=== PATIENT | female | born 1995 | race Caucasian/White ===

== ENCOUNTER → 2021-07-11 11:15 | Outpatient (CLI) | payer OTHER, SELFPAY ==
[2021-07-11 11:42] LABS: Absolute Lymphocyte Count 2.39 X10^3/uL (0.83-4.51); Absolute Neutrophil Count 7.8 X10^3/uL (2.0-7.7); Basophil# 0.03 X10^3/uL; Basophil% 0.3 % (0-1); Color, Urine Yellow (Yellow); Eosinophil# 0.03 X10^3/uL; Eosinophils% 0.3 % (0-5); Glucose, Dipstick Normal (Normal); Hematocrit 41.1 % (37-47); Hemoglobin 13.9 g/dL (12.0-15.0); Ketone-Dipstick Negative (Negative); Leukocyte Esterase-Dipstick 25 /ul (Negative); Lymphocyte # 2.39 X10^3/ul (0.83-4.51); Lymphocyte % 21.9 % (19-41); Mean Corp Hgb Conc 33.8 g/dL (32-36); Mean Corpuscular Hgb 29.4 pg (27.0-32.0); Mean Corpuscular Volume 86.9 fL (81-99); Mean Platelet Vol. 10.5 fl (6.2-12.0); Monocyte# 0.63 X10^3/uL; Monocyte% 5.8 % (0-10); NRBC Flagged by Analyzer 0 % (0-5); Neutrophil # 7.81 X10^3/uL (2.7-7.7); Neutrophil % 71.3 % (47-70); Nitrite-Dipstick Negative (Negative); Occult Blood-Urine Negative /ul (Negative); Platelet Count 292 K/mm3 (150-450); Protein-Dipstick Negative (Negative); RBC Distribution Width CV 12.8 % (11.6-14.6); RBC Distribution Width SD 40.4 fl (35.1-43.9); Red Blood Count 4.73 M/mm3 (4.2-5.4); Specific Gravity, Urine 1.015 (1.002-1.030); Urine Bilirubin Dipstick Negative (Negative); Urine Clarity Sl. Cloudy (Clear); Urine Urobilinogen Normal (Normal); White Blood Count 10.9 K/mm3 (4.4-11.0)
[2021-07-11 11:53] LABS: Amphetamine Urine VISTA NEGATIVE (<1000 ng/mL); Barbiturate Urine VISTA NEGATIVE (< 200 ng/mL); Benzodiazepine Urine VISTA NEGATIVE (< 200 ng/mL); Cocaine Urine VISTA NEGATIVE (< 300 ng/mL); Ecstacy Urine VISTA NEGATIVE (< 500 ng/mL); Methadone Urine VISTA NEGATIVE (< 300 ng/mL); PCP Urine VISTA NEGATIVE (< 25 ng/mL); THC Urine VISTA NEGATIVE (< 50 ng/mL); Vista UDS pH Range 7
[2021-07-11 12:21] LABS: Thyroid Stim Hormone (TSH) 4.19 uIU/mL (0.358-3.74)
[2021-07-11 12:54] LABS: HIV - WCH Non-Reactive (Nonreactive); Hepatitis B Surface Antigen Non-Reactive (Nonreactive); Hepatitis C Antibody Non-Reactive (Nonreactive); Rubella IgG Reactive (Nonreactive); Syphilis Antibodies Non-reactive
[2021-07-15 12:56] LABS: T4 Free Direct 0.88 ng/dL (0.76-1.46)
[2021-07-16 19:07] LABS: Chlamydia By Nucleic Acid AMP Negative (Negative)
[2021-07-17 09:31] LABS: Gonococcus By Nucleic Acid AMP Negative (Negative)
[2021-07-17 18:52] LABS: HPV Reflexed? NOT INDICATED
== END ==
PROVIDERS: Visit Provider Obstetrics & Gynecology
DX: Z34.81 Encounter for supervision of other normal pregnancy, first trimester (principal); Z12.4 Encounter for screening for malignant neoplasm of cervix
CPT/HCPCS: 36415; 80307; 81002; 84439; 84443; 85025; 86703; 86762; 86780; 86803; 87086; 87088; 87186; 87340; 87491; 87591; 88175; G0145

== ENCOUNTER → 2021-07-23 11:32 | Outpatient (CLI) | payer OTHER, SELFPAY ==
[2021-07-25 18:22] LABS: Anti-Thyroglobulin AB < 1.0 IU/mL (0.0-0.9); Thyroglobulin, Serum Qt. 7.5 ng/mL (1.5-38.5); Thyroid Peroxidase AB 20 IU/mL (0-34)
== END ==
PROVIDERS: Visit Provider Obstetrics & Gynecology
DX: E03.9 Hypothyroidism, unspecified (principal)
CPT/HCPCS: 36415; 84432; 86376; 86800

== ENCOUNTER 2021-11-12 14:14 | Outpatient (CLI) | payer OTHER, SELFPAY ==
[2021-11-12 17:09] LABS: Hematocrit 35.5 % (37-47); Mean Corp Hgb Conc 33.8 g/dL (32-36); Mean Corpuscular Hgb 30.1 pg (27.0-32.0); Mean Platelet Vol. 11.1 fl (6.2-12.0); Platelet Count 268 K/mm3 (150-450); RBC Distribution Width CV 13.2 % (11.6-14.6); RBC Distribution Width SD 43.2 fl (35.1-43.9); Red Blood Count 3.99 M/mm3 (4.2-5.4); White Blood Count 12.9 K/mm3 (4.4-11.0)
[2021-11-12 17:36] LABS: Free T3 2.1 pg/mL (2.18-3.98); Glucose Challenge Gest 1H 50g 137 mg/dL (70-140); T4 Free Direct 0.67 ng/dL (0.76-1.46); Thyroid Stim Hormone (TSH) 2.08 uIU/mL (0.358-3.74)
== END 2021-11-12 23:59 | disposition short-term general hospital (02) ==
LOC: WOBLAB 14:14
PROVIDERS: Visit Provider Obstetrics & Gynecology
DX: O99.283 Endocrine, nutritional and metabolic diseases complicating pregnancy, third trimester (principal); E03.9 Hypothyroidism, unspecified
CPT/HCPCS: 36415; 82950; 84439; 84443; 84481; 85027

== ENCOUNTER 2021-12-11 15:52 | Outpatient (CLI) | payer OTHER, SELFPAY ==
[2021-12-11 16:48] LABS: T4 Free Direct 0.64 ng/dL (0.76-1.46); Thyroid Stim Hormone (TSH) 1.52 uIU/mL (0.358-3.74)
== END 2021-12-11 23:59 | disposition home or self-care (01) ==
LOC: WOBLAB 15:52
PROVIDERS: Visit Provider Obstetrics & Gynecology
DX: O99.283 Endocrine, nutritional and metabolic diseases complicating pregnancy, third trimester (principal); E03.9 Hypothyroidism, unspecified; Z3A.00 Weeks of gestation of pregnancy not specified
CPT/HCPCS: 36415; 84439; 84443

== ENCOUNTER 2022-01-17 16:07 | Outpatient (CLI) | payer OTHER, SELFPAY ==
[2022-01-17 17:01] LABS: Hematocrit 34.7 % (37-47); Hemoglobin 11.4 g/dL (12.0-15.0); Mean Corp Hgb Conc 32.9 g/dL (32-36); Mean Corpuscular Hgb 27.8 pg (27.0-32.0); Mean Corpuscular Volume 84.6 fL (81-99); Mean Platelet Vol. 11.4 fl (6.2-12.0); Platelet Count 269 K/mm3 (150-450); RBC Distribution Width CV 13.3 % (11.6-14.6); RBC Distribution Width SD 41.3 fl (35.1-43.9); White Blood Count 11.5 K/mm3 (4.4-11.0)
[2022-01-17 17:35] LABS: Creatinine, Urine (random) < 13.00 mg/dL (NO RANGE EST.); Protein, Urine (Random) < 6.0 mg/dL (<11.9)
[2022-01-17 18:00] LABS: AST(SGOT) 10 U/L (15-37); Alanine Aminotransfer ALT/SGPT 17 U/L (13-56); Albumin, Serum 2.5 g/dL (3.2-5.0); Alkaline Phosphatase 116 U/L (45-117); Bilirubin, Direct 0.08 mg/dL (0.00-0.30); Globulin 3.8 g/dL (2.2-4.2); Protein, Total 6.3 g/dL (6.4-8.2); T4 Free Direct 0.65 ng/dL (0.76-1.46); Thyroid Stim Hormone (TSH) 1.16 uIU/mL (0.358-3.74)
[2022-01-20 14:20] LABS: T4 Total, Thyroxin 8.2 ug/dL (4.8-13.9)
== END 2022-01-17 23:59 | disposition home or self-care (01) ==
LOC: WOBLAB 16:08
PROVIDERS: Visit Provider Obstetrics & Gynecology
DX: O12.03 Gestational edema, third trimester (principal); O99.283 Endocrine, nutritional and metabolic diseases complicating pregnancy, third trimester; E03.9 Hypothyroidism, unspecified; Z3A.00 Weeks of gestation of pregnancy not specified
CPT/HCPCS: 36415; 80076; 82570; 84156; 84436; 84439; 84443; 85027

== ENCOUNTER 2022-02-01 01:40 | Inpatient (IN) | payer OTHER, SELFPAY ==
[2022-02-01] VITALS (61 sets, daily range): BP systolic 104–146; BP diastolic 56–81; PULSE 72–121; RESP 18; TEMP 36.2–37.8; O2SAT 90–100; BMI 35.6
--- NOTE | 2022-02-01 01:36 | PCM.HP.BLA ---
History and Physical Date of Admission: 02/01/22 OG ANTEPARTUM RECORD - HISTORY AND PHYSICAL (02/01/2022) Name: REYNALDO FUNES History of this : This is a 26 year old [id number] presents at 40 wks + 0 days gestation with SROM. OB Physician: Beth Maya MD Mccausland's Physician: PED REPERTOIRE MANAGER ...................................................................... : 1995 Age: 26 Address: [address] [place] [address] Phone: ([phone] ([phone] Insurance Carrier: [employer] [id number] Emergency Contact: ...................................................................... Final SHELLEY: 02/01/22 By Ultrasound: 12 weeks 3 days PARITY: (G-Total Pregnancies P-Fullterm,Premature,Induced AB,Spont AB, Ectopics, Multiple,Living) SHELLEY CONFIRMATION: By LMP: 04/18/21 Initial Exam: 01/23/22 By First Ultrasound Exam: 02/01/22 Final SHELLEY: 02/01/22 OB PROBLEM LIST: - office class enc. Declines genetic and carrier screening EPDS = 5 Epidural plannned - office childbirth class enc. First cousin with Autism GBS bactiuria Spouse has 2 nephews with Spina Bifida Subclinical hypothyroidism ALLERGIES: No Known Drug Allergies MEDICATIONS: 28 mg-800 mcg tablet daily Synthroid 50 mcg tablet One pill by mouth once a day SOCIAL HISTORY: Smoking - Never Alcohol Use - socially Diet - no special diet Lifestyle - low stress lifestyle and Exercise - regular Employer - [employer] Job Description - [employer] Illicit Drug Use - denies use of street drugs Sexual Activity - Residence - lives with Place of - [place], [place] Hours Worked - 20 WK Spouse-Sig Other Name - Anibal Funes Spouse-Sig Other Occupation - Liquid Compounder Spouse-Sig Other Phone No - [phone] PRIOR DELIVERY HISTORY DEL DATE GEST LAB WT LB WT OZ TYPE ANES LABOR TX ANTEPARTUM FLOW CHART VISIT GE RTC FU F F GA U U DATE WK MD WKS HT PN HR M SS BP ED WT GA GL D EF ST __ ____ ___ __ __ ___ __ __ __ ___ __ __ __ ___ __ 14 Apr 39 JM 1 39 V + + 128/78 0 224 - - 1 07 Apr 38 JM 1 38 V + + 136/84 1+ 217 - - 1 01 Apr 37 SHM 1 38 V + + 134/70 sl 222 tr - 22 Mar 36 SHM 1 37 V + + 120/76 3+ 216 - - 08 Mar 34 SHM 2 35 V + + 115/60 sl 209 - - 23 Feb 32 SHM 2 32 V + + 136/82 sl 203 - - 08 Feb 30 SHM 2 30 + + 120/70 0 196 - - 25 Nov 15 SHM 2 28 ? + + 120/60 sl 191 ne ne Oct 11 SHM 4 24 ? + + 122/78 1+ 183 ne ne Oct 07 SHM 4 20 + US 112/62 0 171 tr - 03 Sep 03 SHM 4 16 + o 100/66 161 - - 05 Jul 30 SHM 4 on US 100/60 153 tr - ANTEPARTUM NOTE(S): Jan 30 2022: Jan 23 2022: Jan 17 2022: PATSY today Jan 07 2022: back pain, restless legs Dec 24 2021: doing well Dec 11 2021: Nov 26 2021: doing well Nov 12 2021: see note Oct 16 2021: FM well, Back pain at times, Glucola given Sep 18 2021: comp u/s today Aug 21 2021: Jul 23 2021: Mild nausea COMPREHENSIVE ANTEPARTUM NOTE(S): Jan 30 2022: Reynaldo is 39w5d here for PNV. Good FM no edema. Woul dlike cervical check and to have her membranes swept. BR Jan 30 2022: 39wks, desires IOL at 41wks. JM Jan 23 2022: Reynaldo is 38w5d here for PNV good FM 1+edema. No concerns. BR Jan 23 2022: 38wks, CE 1cm. JM Jan 21 2022: H taken to OB. tkg Jan 17 2022: TFTs, preeclampsia labs today given continued fluid gain, upper normal BPs. Pt asx. Si/sx preeclampsia reviewed. Labor, ROM, FM precautions. Jan 07 2022: Reynaldo is here for a pnv at 36/3. Good FM. 3 + edema present, non-pitting. Discussed use of compression socks. Mild back pain/ discomfort, [plans to start using maternity belt. Desires cervix check. MK Dec 24 2021: Reynaldo is 34w3d here for PNV. Good FM. Slight edema. She is doing well. She has no questions/concerns at this time. MR Dec 24 2021: Preeclampsia, PTL, ROM, FM precautions. Discussed Peds selection. Dec 11 2021: Reynaldo is 32w4d here for PNV. Good FM sl edema. No concerns or complaints today. Would like to know if she should get a refill of synthriod as she is almost out. BR Nov 29 2021: Entry for 11/26/21: Irregular FHTs noted, refer to MFM for eval Nov 26 2021: Reviewed FM and PTL. Encouraged Tdap. Tolerating thyroid medication well. LMT Nov 26 2021: Reviewed hypothyroidism, tolerates Synthroid well. Repeat labs in 2-4 weeks. PTL, FM precautions. Discussed childbirth class. Nov 12 2021: Discussed PPBC, previously on OCP, considering options. PTL, ROM, FM precautions. Baby shower in 4 weeks. Oct 16 2021: EPIDURAL PLANNED in labor. PTL, FM precautions. Glucola info for next visit. Low-mid back pain, exercises, comfort measures discussed. Sep 18 2021: Reynaldo is here with her for comp u/s today. She relates some issues with Restless Leg Syndrome and asking what she can do? Reviewed that she can try Magnesium, warm bath, Unisom, or Benadryl if trouble sleeping from the RLS. She also has lower back discomfort and advised she could try massage, heating pad, Chiropractor. Reviewed vaccines that are recommended in . Reviewed blood t Sep 18 2021: Discussed warm bath, massage and mineral supplementation including Mg, Benadryl qhs for restless leg syndrome. [place] and PTL precautions. Anatomy scan today wnl, EFW 73rd%, sex unknown - plans home reveal, placenta ANTERIOR. ok for . Travel precautions for Donna travel, DVT precautions reviewed. Aug 21 2021: Reynaldo here for her PVN. Shes doing well today with no concerns. CB Aug 21 2021: labs reviewed, A positive. Subclinical hypothyroidism with no significant Ab. Pt denies hypothyroid symptoms, si/sx reviewed. Will observe at this time, repeat TFTs at 24-28wga. GBS bactiuria, advised abx in labor, reviewed indications. Pt inquires about alcohol in , reviewed no known safe level and advised to abstain given EtOH crosses placenta and may have neurologic consequenc Jul 31 2021: NOB TELEHEALTH VISIT, 45 MINUTE DURATION. Reynaldo is a 25 year old with an SHELLEY of 02/01/2021, current GA is 13 w 4 d. She resides with her , Anibal; she states that he is supportive. Delivery at [facility] is planned with an epidural, and she will breastfeed. Office and childbirth classes discussed and encouraged. Practice patterns reviewed, including danger signs/emergencies, h Jul 23 2021: Reviewed OTC for mild nausea, discomforts, constipation. Overall feeling well. LMT Jul 23 2021: Reynaldo is here to sign NOB consents. She is a 25 year old with an SHELLEY of 02/01/2022, current GA is 12 w 3 d. She states that she has no nausea, but due to some odor aversions, she vomits at least once a day. Declines medications, states I can manage pretty well. Office practice patterns reviewed. She has been reading through her What to Expect... book and shares that she is finds it use Jul 23 2021: 25yo G1 @ 12w3d by US today not c/w LMP. Pt notes menses q3-5 weeks. She feels well, nausea resolved. Hx and labs reviewed. Strong family hx hypothyroidism and pt with personal hx hypothyroidism, previously on Synthroid temporarily. Unknown if thyroid antibodies. labs reviewed. A positive. GBS bactiuria - indicates for GBS antibiotic ppx in labor reviewed. Subclinical hypothyroid Jul 11 2021: Selene is here for missed menses appt. Relates LMP 04/18/21, +UPT today in office, EDC 01/23/22 which makes her 12 weeks today. She relates that she has mild nausea and occ emesis. She is taking PNV. No signifcant medical history. Unsure of last pap so will have that today. She questions what position to sleep in? Advised she can sleep however she would like. Can she fly? Yes, until about 36 weeks. REVIEW OF SYSTEMS: GENERAL - Denies fever, or chills SKIN - Denies rash, new skin lesions, or change in moles EYES - Denies blurred vision, or change in visual acuity EARS - Denies ear pain, or difficulty hearing NOSE - Denies nasal congestion, discharge, or bleeding MOUTH - Denies sore throat, or difficulty swallowing NECK - Denies pain or swelling RESPIRATORY - Denies shortness of breath, cough, wheezing CARDIOVASCULAR - Denies palpitations, chest pain, orthopnea, PND, peripheral edema, syncope or claudication GASTROINTESTINAL - Denies nausea, vomiting, diarrhea, constipation, Denies abdominal pain, melena and or bright red blood GENITOURINARY - Denies dysuria, frequency of urination, urgency, or hesitancy MUSCULOSKELETAL - Denies joint or muscle pain, or back pain NEUROLOGICAL - Denies localized numbness, weakness, or tingling PSYCHIATRIC - Denies depression, anxiety, substance abuse or suicide attempts ENDOCRINE - Denies heat or cold intolerance, weight loss or gain, increasing thirst HEMATO-IMMUNOLOGIC - Denies easy bruising, bleeding, oral ulcerations or recurrent infections GENETICS SCREENING: Age 35+ years: No Thalassemia: No Neural Tube Defect: Yes, Spouse's two nephews Down Syndrome: No JIE-SACHS: No Sickle Cell Disease: No Hemophilia: No Musc. Dystrophy: No Cystic Fibrosis: No-declines screening Benny Chorea: No Mental Retardation: No Fragile X: No Other genetic: No Other defects: No SABs/still births: No Drugs since LMP: No Comments: Pt has a first cousin with Autism INFECTION HISTORY: High risk AIDS: No High risk Hepatitis: No Exposed to TB: No Exposed to Herpes: No Rash/viral illness since LMP: No History of STD: No MENSTRUAL HISTORY: *Menses Amount/Duration: 6-7 DAYSMenses Regularity: RegularMenarche (Age Onset): 13* PAST SUMMARY: PARITY: 1. Total Pregnancies............ 1 2. Full Term Pregnancies........ 0 3. Premature.................... 0 4. Abortions - Induced.......... 0 5. Abortions - Spontaneous...... 0 6. Ectopics..................... 0 7. Multiple Births.............. 0 8. Living Children.............. 0 PHYSICAL EXAMINATION General Appearence: 26 yo female in no acute distress Vital Signs: AF, VSS Heart: RRR without rubs or gallops Lungs: CTA x 2 Breasts: deferred Abdomen: gravid Pelvis: Cervix: Presentation: cephalic Station: Fetus: Size: AGA Movement: present Heart: present LAB TEST(S) ORDERED SINCE:05/07/21 07/25/2021 THYROID PEROXIDASE AB 07/25/2021 THYROGLOBULIN W/ANTI-TG AB 07/17/2021 PAP I-G W/RFX HRHPV-APTIMA 07/17/2021 CHLAMYDIA/GC COURT APTIMA 07/16/2021 URINE CULTURE 07/15/2021 T4 FREE DIRECT 07/11/2021 URINE DRUG SCREEN (VISTA) 07/11/2021 URINALYSIS, ROUTINE (DIPSTICK) 07/11/2021 THYROID STIM HORMONE (TSH) 07/11/2021 RUBELLA IGG 07/11/2021 T AND S-NO CHARGE W/PNP 07/11/2021 L509.8000 07/11/2021 HIV - WC 07/11/2021 HEPATITIS C ANTIBODY 07/11/2021 HEPATITIS B SURFACE ANTIGEN 07/11/2021 CBC W/DIFF, AUTOMATED 01/20/2022 T4 TOTAL, THYROXIN 01/17/2022 THYROID STIM HORMONE (TSH) 01/17/2022 T4 FREE DIRECT 01/17/2022 PROTEIN+CREATININE RATIO,URINE 01/17/2022 LIVER PROFILE 01/17/2022 CBC-COMPLETE BLOOD CNT NO DIFF 12/11/2021 THYROID STIM HORMONE (TSH) 12/11/2021 T4 FREE DIRECT 11/12/2021 THYROID STIM HORMONE (TSH) 11/12/2021 T4 FREE DIRECT 11/12/2021 GLUCOSE CHALLENGE GEST 1H 50G 11/12/2021 FREE T3 11/12/2021 CBC-COMPLETE BLOOD CNT NO DIFF == ==== Order Observation Description Value Ref_Range A* Site == ==== T4 TOTAL, THYRO NOTE HOLT T4 TOTAL, THYRO T4 THYROXIN 8.2 ug/dL 4.8-13.9 ML T4 FREE DIRECT NOTE HOLT T4 FREE DIRECT T4 FREE DIRECT 0.65 ng/dL 0.76-1.46 L ML THYROID STIM HO NOTE HOLT THYROID STIM HO TSH 1.16 uIU/mL 0.358-3.74 ML LIVER PROFILE NOTE HOLT LIVER PROFILE T PROT 6.3 g/dL 6.4-8.2 L ML LIVER PROFILE ALB 2.5 g/dL 3.2-5.0 L ML LIVER PROFILE GLOB 3.8 g/dL 2.2-4.2 ML LIVER PROFILE AST 10 U/L 15-37 L ML LIVER PROFILE ALK P 116 U/L 45-117 ML LIVER PROFILE ALT 17 U/L 13-56 ML LIVER PROFILE T BILI 0.20 mg/dL 0.20-1.00 ML For patients on eltrombopag therapy, use of Dimension [place] TBIL is not recommended. LIVER PROFILE D BILI 0.08 mg/dL 0.00-0.30 ML PROTEIN+CREATIN NOTE HOLT PROTEIN+CREATIN UR CREAT < 13.00 mg/dL NO RANGE EST. ML PROTEIN+CREATIN PROTEIN,UR.RAN. < 6.0 mg/dL <11.9 ML PROTEIN+CREATIN PROT:CRE RATIO TNP mg/g CRE 0-200 ML CBC-COMPLETE BL NOTE HOLT CBC-COMPLETE BL WBC 11.5 K/mm3 4.4-11.0 H ML CBC-COMPLETE BL RBC 4.10 M/mm3 4.2-5.4 L ML CBC-COMPLETE BL HGB 11.4 g/dL 12.0-15.0 L ML CBC-COMPLETE BL HCT 34.7 37-47 L ML CBC-COMPLETE BL MCV 84.6 fL 81-99 ML CBC-COMPLETE BL MCH 27.8 pg 27.0-32.0 ML CBC-COMPLETE BL MCHC 32.9 g/dL 32-36 ML CBC-COMPLETE BL RDW CV 13.3 11.6-14.6 ML CBC-COMPLETE BL RDW SD 41.3 fl 35.1-43.9 ML CBC-COMPLETE BL PLT 269 K/mm3 150-450 ML CBC-COMPLETE BL MPV 11.4 fl 6.2-12.0 ML T4 FREE DIRECT NOTE HOLT T4 FREE DIRECT T4 FREE DIRECT 0.64 ng/dL 0.76-1.46 L ML THYROID STIM HO NOTE HOLT THYROID STIM HO TSH 1.52 uIU/mL 0.358-3.74 ML T4 FREE DIRECT NOTE HOLT T4 FREE DIRECT T4 FREE DIRECT 0.67 ng/dL 0.76-1.46 L ML THYROID STIM HO NOTE HOLT THYROID STIM HO TSH 2.08 uIU/mL 0.358-3.74 ML FREE T3 NOTE HOLT FREE T3 FREE T3 2.1 pg/mL 2.18-3.98 L ML GLUCOSE CHALLEN NOTE HOLT GLUCOSE CHALLEN GLU GEST 50G 1H 137 mg/dL 70-140 ML CBC-COMPLETE BL NOTE HOLT CBC-COMPLETE BL WBC 12.9 K/mm3 4.4-11.0 H ML CBC-COMPLETE BL RBC 3.99 M/mm3 4.2-5.4 L ML CBC-COMPLETE BL HGB 12.0 g/dL 12.0-15.0 ML CBC-COMPLETE BL HCT 35.5 37-47 L ML CBC-COMPLETE BL MCV 89.0 fL 81-99 ML CBC-COMPLETE BL MCH 30.1 pg 27.0-32.0 ML CBC-COMPLETE BL MCHC 33.8 g/dL 32-36 ML CBC-COMPLETE BL RDW CV 13.2 11.6-14.6 ML CBC-COMPLETE BL RDW SD 43.2 fl 35.1-43.9 ML CBC-COMPLETE BL PLT 268 K/mm3 150-450 ML CBC-COMPLETE BL MPV 11.1 fl 6.2-12.0 ML THYROID PEROXID NOTE HOLT THYROID PEROXID THYR PEROX AB 20 IU/mL 0-34 LCI Performed at: - [facility] [address], [place] [id number] Adjustment Supervisor: Ming Ng PhD, Phone: [phone] THYROGLOBULIN W NOTE HOLT THYROGLOBULIN W ANTI-TG AB < 1.0 IU/mL 0.0-0.9 [facility] Thyroglobulin Antibody measured by [employer] THYROGLOBULIN W THYROGLOB QUANT 7.5 ng/mL 1.5-38.5 LCI According to the National Academy of Clinical Biochemistry, the reference interval for Thyroglobulin (TG) should be related to euthyroid patients and not for patients who underwent thyroidectomy. TG reference intervals for these patients depend on the residual mass of the thyroid tissue left after surgery. Establishing a post-operative baseline is recommended. The assay limit of quantitation is 0.1 ng/mL Thyroglobulin measured by Vadim [employer] Immunometric Assay PAP I-G W/RFX H NOTE HOLT PAP I-G W/RFX H DIAG Comment . [facility] NEGATIVE FOR INTRAEPITHELIAL LESION OR MALIGNANCY. THIS SPECIMEN WAS RESCREENED PART OF OUR RELATIONS SPECIALIST PROGRAM. PAP I-G W/RFX H ADEQ Comment . [facility] Satisfactory for evaluation. Endocervical and/or squamous metaplastic cells (endocervical component) are present. PAP I-G W/RFX H PERFORM Comment . [facility] Brandt Clemens, Musical Instrument Maker Or Repairer (ASCP) PAP I-G W/RFX H QC REV Comment . [facility] Natacha Dobson, Supervisory Musical Instrument Maker Or Repairer (ASCP) This liquid based ThinPrep(R) pap test was screened with the use of an image guided system. PAP I-G W/RFX H COMM . . [facility] PAP I-G W/RFX H PAPSMR Comment . [facility] The Pap smear is a screening test designed to aid in the detection of premalignant and malignant conditions of the uterine cervix. It is not a diagnostic procedure and should not be used as the sole means of detecting cervical cancer. Both false-positive and false-negative reports do occur. PAP I-G W/RFX H HPV RFLX Comment . [facility] The HPV DNA reflex criteria were not met with this specimen result therefore, no HPV testing was performed. Performed at: [address] [id number] Adjustment Supervisor: Emily Herrera MD, Phone: [phone] CHLAMYDIA/GC NA NOTE HOLT CHLAMYDIA/GC NA CHLAMY,NUC ACID Negative Negative LCI CHLAMYDIA/GC NA GC BY NUC ACID Negative Negative [facility] Performed at: =[address], [place], [place] [id number] Adjustment Supervisor: Emily Herrera MD, Phone: [phone] URINE CULTURE NOTE HOLT T4 FREE DIRECT NOTE HOLT T4 FREE DIRECT T4 FREE DIRECT 0.88 ng/dL 0.76-1.46 ML HEPATITIS C ANT NOTE HOLT HEPATITIS C ANT HEPATITIS C AB Non-Reactive Nonreactive ML Non Reactive: < 0.8 Equivocal: >/= 0.8 to < 1.0 Reactive: >/= 1.0 The CDC recommends that a reactive/equivocal HCV antibody result be followed up by the HCV Nucleic Acid Amplification test (399576) HEPATITIS B LELAND NOTE HOLT HEPATITIS B LELAND HEP B SURF AG Non-Reactive Nonreactive ML HIV - WC NOTE HOLT HIV - [facility] HIV Non-Reactive Nonreactive ML L509.8000 NOTE HOLT L509.8000 SYPHILIS ABS Non-reactive ML RUBELLA IGG NOTE HOLT RUBELLA IGG RUBELLA IGG Reactive Nonreactive ML Antibody Results Interpretation of Immune Status Non Reactive Presumed Non-Immune Equivocal Equivocal Reactive Presumed Immune PN N [facility]~[address] [place], [address]~ T AND AB SCREEN GEL NEGATIVE ML THYROID STIM HO NOTE HOLT THYROID STIM HO TSH 4.19 uIU/mL 0.358-3.74 H ML URINE DRUG SCRE NOTE HOLT URINE DRUG SCRE VISTA UDS PH 7 ML URINE DRUG SCRE AMPHETAMINES NEGATIVE <1000 ng/mL ML URINE DRUG SCRE BARBITIURATES NEGATIVE < 200 ng/mL ML URINE DRUG SCRE BENZODIAZIPINE NEGATIVE < 200 ng/mL ML URINE DRUG SCRE COCAINE NEGATIVE < 300 ng/mL ML URINE DRUG SCRE ECSTACY NEGATIVE < 500 ng/mL ML URINE DRUG SCRE METHADONE NEGATIVE < 300 ng/mL ML URINE DRUG SCRE OPIATES NEGATIVE < 300 ng/mL ML URINE DRUG SCRE PCP NEGATIVE < 25 ng/mL ML URINE DRUG SCRE THC NEGATIVE < 50 ng/mL ML CBC W/DIFF, AUT NOTE HOLT CBC W/DIFF, AUT WBC 10.9 K/mm3 4.4-11.0 ML CBC W/DIFF, AUT RBC 4.73 M/mm3 4.2-5.4 ML CBC W/DIFF, AUT HGB 13.9 g/dL 12.0-15.0 ML CBC W/DIFF, AUT HCT 41.1 37-47 ML CBC W/DIFF, AUT MCV 86.9 fL 81-99 ML CBC W/DIFF, AUT MCH 29.4 pg 27.0-32.0 ML CBC W/DIFF, AUT MCHC 33.8 g/dL 32-36 ML CBC W/DIFF, AUT RDW CV 12.8 11.6-14.6 ML CBC W/DIFF, AUT RDW SD 40.4 fl 35.1-43.9 ML CBC W/DIFF, AUT PLT 292 K/mm3 150-450 ML CBC W/DIFF, AUT MPV 10.5 fl 6.2-12.0 ML CBC W/DIFF, AUT NEUT% 71.3 47-70 H ML CBC W/DIFF, AUT LY% 21.9 19-41 ML CBC W/DIFF, AUT MONO% 5.8 0-10 ML CBC W/DIFF, AUT EO% 0.3 0-5 ML CBC W/DIFF, AUT BASO% 0.3 0-1 ML CBC W/DIFF, AUT IG% 0.400 0.0-0.9 ML IG% - Immature Granulocytes (promyelocytes, myelocytes and metamyelocytes) > 1% indicates that a LEFT SHIFT is Present. CBC W/DIFF, AUT ABSOLUTE NEUT 7.8 X10 3/uL 2.0-7.7 H ML CBC W/DIFF, AUT ABSOLUTE LYMPH 2.39 X10 3/uL 0.83-4.51 ML CBC W/DIFF, AUT NUCLEATED RBC 0 0-5 ML URINALYSIS, ROU NOTE HOLT URINALYSIS, ROU COLOR Yellow Yellow ML URINALYSIS, ROU URINE CLARITY Sl. Cloudy Clear ML URINALYSIS, ROU GLUCOSE, UR Normal mg/dl Normal ML URINALYSIS, ROU BILIRUBIN URINE Negative mg/dL Negative ML URINALYSIS, ROU KETONE UR Negative mg/dl Negative ML URINALYSIS, ROU SP.GR. DIPSTX 1.015 1.002-1.030 ML URINALYSIS, ROU PH UR 8.0 5.0 - 8.0 ML URINALYSIS, ROU PROT DIPSTX Negative mg/dl Negative ML URINALYSIS, ROU UROBILI Normal mg/dl Normal ML URINALYSIS, ROU NITRITE Negative Negative ML URINALYSIS, ROU OCCULT BLOOD-UR Negative /ul Negative ML URINALYSIS, ROU LEUK ESTERASE 25 /ul Negative A ML Mixed Gram Positive Organisms [place] Count 11,000-25,000 Streptococcus agalactiae (B) [place] Count <1000 Streptococcus agalactiae (B): REACTION Ampicillin <=0.25 S Penicillin G <=0.06 S Ceftriaxone <=0.12 S Clindamycin >=1 R Clindamycin.induced NEG Linezolid <=2 S Vancomycin 0.5 S A POSITIVE == ==== Impression /Plan: 40 wks + 0 days intrauterine with SROM in early labor. Preparations in progress for delivery.
[2022-02-01 01:50] LABS: ROM Internal Control Test YES-OK TO RESULT pt. (Internal QC)
[2022-02-01 01:54] LABS: ROM Patient Test POSITIVE (Negative)
[2022-02-01] MEDS: Lactated Ringers 1,000 ML 50 ML IV (02:00)
[2022-02-01 02:41] LABS: Absolute Lymphocyte Count 1.84 X10^3/uL (0.83-4.51); Absolute Neutrophil Count 8.4 X10^3/uL (2.0-7.7); Basophil# 0.01 X10^3/uL; Basophil% 0.1 % (0-1); Eosinophil# 0.07 X10^3/uL; Eosinophils% 0.6 % (0-5); Hematocrit 32.7 % (37-47); Hemoglobin 10.3 g/dL (12.0-15.0); Lymphocyte # 1.84 X10^3/ul (0.83-4.51); Lymphocyte % 16.4 % (19-41); Mean Corp Hgb Conc 31.5 g/dL (32-36); Mean Corpuscular Hgb 27.3 pg (27.0-32.0); Mean Corpuscular Volume 86.7 fL (81-99); Mean Platelet Vol. 11.5 fl (6.2-12.0); Monocyte# 0.84 X10^3/uL; Monocyte% 7.5 % (0-10); NRBC Flagged by Analyzer 0 % (0-5); Neutrophil # 8.35 X10^3/uL (2.7-7.7); Neutrophil % 74.7 % (47-70); Platelet Count 244 K/mm3 (150-450); RBC Distribution Width CV 14.6 % (11.6-14.6); RBC Distribution Width SD 45.4 fl (35.1-43.9); Red Blood Count 3.77 M/mm3 (4.2-5.4); White Blood Count 11.2 K/mm3 (4.4-11.0)
[2022-02-01] MEDS: Oxytocin 30 units/NS 500 ml 30 UNITS/500 ML IV.SOLN IV (05:12)
[2022-02-01] MEDS: Penicillin G 3,000,000 Units 50 ML 100 UNITS IV ×4 (07:40→20:08)
[2022-02-01] MEDS: Lactated Ringers 500 ML 999 ML IV ×2 (08:30→13:44)
[2022-02-01] MEDS: fentaNYL-bupivacaine (epidural) 100 ML BAG EPIDURAL ×3 (10:03→18:46)
[2022-02-01] MEDS: Lactated Ringers 1,000 ML 200 ML IV ×2 (12:03→15:28)
--- NOTE | 2022-02-01 17:55 | NURSING ---
Lactated ringers decreased to 150ml/hr per Dr. Taylor verbal order.
[2022-02-01] MEDS: Oxytocin 30 units/NS 500 ml 30 UNITS/500 ML IV.SOLN 334 UNITS IV (22:45)
--- NOTE | 2022-02-01 22:53 | EX.PCM.OBRPT ---
Maternal Data Information Final SHELLEY: 02/01/22 Final SHELLEY Source: US <20 weeks Gestational age: 40 weeks 0 days gestation Vaginal Delivery Maternal Presentation Maternal Presentation: Active Labor and Spontaneous Rupture of Membranes Operative Information Date of Procedure: 02/01/22 Pre-Operative Diagnosis: IUP Post-Operative Diagnosis: IUP Surgery / Procedure Performed: Vacuum Assisted Vaginal Delivery Type of Anesthesia: Epidural Estimated Blood Loss: 250 cc Fluids Replaced: Crystalloid Findings Description of Procedure: Spontaneous vaginal delivery of a viable male infant with Apgars of 8/9 from an occiput anterior presentation with clear amniotic fluid and normal three-vessel placenta. No episiotomy. Second-degree midline laceration repaired with 3-0 Rapide suture under epidural. Sponges okay. Delivery physician: Anibal Taylor MD. Presentation: Vertex Amniotic Membrane Rupture Type: Spontaneous Amniotic Fluid Description: Clear Placental Delivery Description: Spontaneous Placenta Disposition: [facility] Cord Vessel Description: 3 Vessels Cord Entanglement: None A Gender: Male (1 minute): 8 (5 minute): 9 Post Vaginal Delivery Medications Given After Delivery: IV Pitocin Episiotomy Description: None Laceration: Midline and 2nd degree Complication Complications: None
[2022-02-02] VITALS (10 sets, daily range): BP systolic 110–134; BP diastolic 55–77; PULSE 88–125; RESP 14–18; TEMP 36.3–36.8; O2SAT 97–98
[2022-02-02] MEDS: 0.9% Saline Lock 10 ML Syringe IV (01:18)
[2022-02-02] MEDS: Ibuprofen 600 MG Tablet PO ×3 (03:15→18:25)
[2022-02-02] MEDS: Levothyroxine 75 MCG Tablet PO (06:00)
--- NOTE | 2022-02-02 06:48 | NURSING ---
This RN reviewed and agrees with Alex Student nurse charting and assessments
--- NOTE | 2022-02-02 08:53 | PCM.PN.OB ---
Subjective Subjective Patient without complaints. Minimal vaginal bleeding noted. Breast-feeding going well. Objective Data Objective Data Vital Signs: Vital Signs Temp Pulse Resp BP Pulse Ox 97.7 F L 88 14 134/77 H 98 02/02/22 03:09 02/02/22 03:09 02/02/22 03:09 02/02/22 03:09 02/02/22 00:48 Oxygen Delivery Method Room Air Weight: 228 lb Body Mass Index (BMI) 35.6 Intake & Output: Intake and Output for Last 24 Hours 01/31/22 02/01/22 02/02/22 23:59 23:59 23:59 Intake Total 4178.96 / 4178.96 333 / 333 Output Total 3650 / 3650 800 / 800 Balance 528.96 / 528.96 -467 / -467 Lab / Micro Data Result Diagrams: 02/01/22 02:00 Micro: Microbiology 02/01/22 02:00 Nasal Secretion SARS-CoV-2 Antigen (Rapid) - Final Assessment & Plan (1) Spontaneous vaginal delivery: PLAN: Doing well post day #1 status post routine spontaneous vaginal delivery. Delivered late last evening and desires to stay another day. Will discharge to home tomorrow and continue present care.
[2022-02-02] MEDS: Senna/Docusate Sodium 1 Tablet PO (12:01)
[2022-02-03 00:05] VITALS: BP 131/80; PULSE 102; RESP 18; TEMP 36.7
[2022-02-03 04:35] VITALS: BP 122/78; PULSE 86; RESP 18; TEMP 36.6
[2022-02-03] MEDS: Levothyroxine 75 MCG Tablet PO (06:36)
--- NOTE | 2022-02-03 08:19 | PCM.PN.OB ---
Subjective Subjective Patient without complaints. Breast-feeding. Minimal vaginal bleeding reported. Wants to go home if baby is able to go. Objective Data Objective Data Vital Signs: Vital Signs Temp Pulse Resp BP Pulse Ox 97.9 F 86 18 122/78 H 98 02/03/22 04:35 02/03/22 04:35 02/03/22 04:35 02/03/22 04:35 02/02/22 16:00 Oxygen Delivery Method Room Air Weight: 228 lb Body Mass Index (BMI) 35.6 Intake & Output: Intake and Output for Last 24 Hours 02/01/22 02/02/22 02/03/22 23:59 23:59 23:59 Intake Total 4178.96 / 4178.96 333 / 333 Output Total 3650 / 3650 800 / 800 Balance 528.96 / 528.96 -467 / -467 Lab / Micro Data Result Diagrams: 02/01/22 02:00 Micro: Microbiology 02/01/22 02:00 Nasal Secretion SARS-CoV-2 Antigen (Rapid) - Final Assessment & Plan (1) Spontaneous vaginal delivery: PLAN: Doing well day #2 status post routine spontaneous vaginal delivery. Will discharge to home with routine instructions.
--- NOTE | 2022-02-03 08:21 | PCM.DC ---
Discharge Instructions Diet Discharge Diet: No restrictions Activity Discharge Activity: May Drive (In 1 to 2 days if not taking narcotic pain medication), May Shower and May Take a Tub Bath May resume sexual activity in: 4-6 weeks Additional Activity Instructions:: Nothing in the vagina for 4-6 weeks. You may return to work/school in 6 weeks. Dressing / Incision Call your doctor if you observe: Fever of 101 or Higher, Inability to urinate, Inability to have a bowel movement and Using more than 1 pad per hour Follow Up Care Please Follow Up With: Beth Álvarez MD When: Call [phone] to make an appointment with your doctor in 6 weeks. Test Results: Test results from this visit will be discussed in further detail at your follow-up appointment, if applicable. Discharge Plan Admission Admit Date/Time: 02/01/22 01:40 Primary Reason for Your Visit: Vaginal Delivery Attending Provider: Anibal Taylor Primary Care Provider: Care Physician,Brenna Primary Discharge Orders/Prescriptions Prescriptions: No Action levothyroxine [Synthroid] 75 mcg Tablet 75 mcg PO DAILY RF: 0 #2 Tablet 1 tab PO DAILY RF: 0 Referrals / Follow Up: Care Physician,No Primary [Primary Care Provider] - Disposition Disposition (needs filled in before D/C Order can be placed): Home, Self Care
--- NOTE | 2022-02-03 08:22 | PCM.DC.SUM ---
Providers Date of Admission: 02/01/22 Primary Care Physician: Brenna Primary Care Phys Reason For Visit: LABOR Diagnosis Discharge Diagnosis (1) Spontaneous vaginal delivery: Status: Acute Code(s): O80 - Encounter for full-term uncomplicated delivery Plan: Released to home with routine instructions. Follow-up in 6 weeks in the office. Medications at Discharge Home Medications levothyroxine [Synthroid] 75 mcg PO DAILY 02/01/22 prenat.vits,pierce,sec-pegu-bgzlp [ #2] 1 tab PO DAILY 02/01/22 Weight / BMI Weight Weight: 228 lb Body Mass Index (BMI) 35.6 ABG / Lab / Microbiology Data Result Diagrams: 02/01/22 02:00 Microbiology: Microbiology 02/01/22 02:00 Nasal Secretion SARS-CoV-2 Antigen (Rapid) - Final D/C Instructions Discharge Diet: No restrictions May resume sexual activity in: 4-6 weeks Additional Activity Instructions: Nothing in the vagina for 4-6 weeks. You may return to work/school in 6 weeks. Call your doctor if you observe: Fever of 101 or Higher, Inability to urinate, Inability to have a bowel movement and Using more than 1 pad per hour Please Follow Up With: Beth Álvarez MD When: Call [phone] to make an appointment with your doctor in 6 weeks. Meaningful Use Info Meaningful Use Diagnoses (Choose all that apply): None applicable Discharge Plan Admission Admit Date/Time: 02/01/22 01:40 Primary Reason for Your Visit: Vaginal Delivery Attending Provider: Anibal Taylor Primary Care Provider: Care Physician,Brenna Primary Discharge Orders/Prescriptions Prescriptions: No Action levothyroxine [Synthroid] 75 mcg Tablet 75 mcg PO DAILY RF: 0 #2 Tablet 1 tab PO DAILY RF: 0 Referrals / Follow Up: Care Physician,Brenna Primary [Primary Care Provider] - Disposition Disposition (needs filled in before D/C Order can be placed): Home, Self Care
[2022-02-03 09:04] VITALS: BP 128/73; PULSE 79; RESP 16; TEMP 36.3; O2SAT 98
[2022-02-03] MEDS: Acetaminophen 500 MG Tablet 1000 MG PO (09:16)
== END 2022-02-03 12:15 | disposition home or self-care (01) | DRG 807 ==
LOC: WPOUT 01:46 → WP 01:46
PROVIDERS: Admitting Provider Obstetrics & Gynecology; Visit Provider Obstetrics & Gynecology
DX: O76 Abnormality in fetal heart rate and rhythm complicating labor and delivery (principal); Z37.0 Single live birth; E03.9 Hypothyroidism, unspecified; O99.284 Endocrine, nutritional and metabolic diseases complicating childbirth; O42.92 Full-term premature rupture of membranes, unspecified as to length of time between rupture and onset of labor; O70.1 Second degree perineal laceration during delivery; O99.820 Streptococcus B carrier state complicating pregnancy; Z28.310 Unvaccinated for COVID-19; Z28.9 Immunization not carried out for unspecified reason; Z3A.40 40 weeks gestation of pregnancy; Z79.899 Other long term (current) drug therapy
CPT/HCPCS: 59025; 59050; 84112; 85025; 86850; 86900; 86901; 87426; 99218; J7120; A4216; G0378

== ENCOUNTER → 2022-03-04 | Outpatient (CLI) | payer OTHER, SELFPAY ==
[2022-03-04 15:48] LABS: Free T3 2.4 pg/mL (2.18-3.98); T4 Free Direct 0.97 ng/dL (0.76-1.46)
[2022-03-11 09:30] LABS: T3 Reverse 11.6 ng/dL (9.2-24.1)
== END | disposition home or self-care (01) ==
LOC: WOBLAB 14:15
PROVIDERS: Visit Provider Obstetrics & Gynecology
DX: E03.9 Hypothyroidism, unspecified (principal)
CPT/HCPCS: 36415; 84439; 84443; 84481; 84482

== ENCOUNTER → 2023-01-08 | Outpatient (CLI) | payer OTHER, SELFPAY ==
[2023-01-12 22:06] LABS: Chlamydia By Nucleic Acid AMP Negative (Negative)
[2023-01-13 08:58] LABS: Gonococcus By Nucleic Acid AMP Negative (Negative)
== END | disposition home or self-care (01) ==
PROVIDERS: PCP Family Medicine; Referring Provider Obstetrics & Gynecology; Visit Provider Obstetrics & Gynecology
DX: O09.90 Supervision of high risk pregnancy, unspecified, unspecified trimester (principal); Z3A.00 Weeks of gestation of pregnancy not specified
CPT/HCPCS: 87086; 87088; 87491; 87591

== ENCOUNTER → 2023-01-12 | Outpatient (CLI) | payer OTHER, SELFPAY ==
[2023-01-12 14:51] LABS: hCG Titer Quant., Serum 19854 mIU/mL (1-3)
== END | disposition home or self-care (01) ==
LOC: PAVLAB 14:07
PROVIDERS: PCP Family Medicine; Referring Provider Obstetrics & Gynecology; Visit Provider Obstetrics & Gynecology
DX: O20.0 Threatened abortion (principal); Z3A.00 Weeks of gestation of pregnancy not specified
CPT/HCPCS: 36415; 84702

== ENCOUNTER → 2023-01-20 | Outpatient (CLI) | payer OTHER, SELFPAY ==
[2023-01-20 13:53] LABS: T4 Free Direct 0.91 ng/dL (0.76-1.46); Thyroid Stim Hormone (TSH) 1.59 uIU/mL (0.358-3.74)
== END | disposition home or self-care (01) ==
PROVIDERS: PCP Family Medicine; Referring Provider Obstetrics & Gynecology; Visit Provider Obstetrics & Gynecology
DX: Z86.39 Personal history of other endocrine, nutritional and metabolic disease (principal)
CPT/HCPCS: 36415; 84439; 84443

== ENCOUNTER → 2023-07-29 | Outpatient (CLI) | payer OTHER, SELFPAY ==
[2023-07-29 14:47] LABS: Absolute Lymphocyte Count 2.77 X10^3/uL (0.83-4.51); Absolute Neutrophil Count 8.9 X10^3/uL (2.0-7.7); Basophil# 0.05 X10^3/uL; Basophil% 0.4 % (0-1); Eosinophil# 0.06 X10^3/uL; Eosinophils% 0.5 % (0-5); Hematocrit 40.6 % (37-47); Hemoglobin 13.9 g/dL (12.0-15.0); Lymphocyte # 2.77 X10^3/ul (0.83-4.51); Lymphocyte % 22.2 % (19-41); Mean Corp Hgb Conc 34.2 g/dL (32-36); Mean Corpuscular Volume 87.5 fL (81-99); Mean Platelet Vol. 10.4 fl (6.2-12.0); Monocyte% 5.6 % (0-10); NRBC Flagged by Analyzer 0 % (0-5); Neutrophil # 8.85 X10^3/uL (2.7-7.7); Neutrophil % 71.1 % (47-70); Platelet Count 312 K/mm3 (150-450); RBC Distribution Width CV 12.8 % (11.6-14.6); RBC Distribution Width SD 40.7 fl (35.1-43.9); Red Blood Count 4.64 M/mm3 (4.2-5.4); White Blood Count 12.5 K/mm3 (4.4-11.0)
[2023-07-29 15:21] LABS: T4 Free Direct 0.98 ng/dL (0.76-1.46); Thyroid Stim Hormone (TSH) 1.48 uIU/mL (0.358-3.74)
[2023-07-29 15:48] LABS: HIV - WCH Non-Reactive (Nonreactive); Hepatitis B Surface Antigen Non-Reactive (Nonreactive); Hepatitis C Antibody Non-Reactive (Nonreactive); Rubella IgG Reactive (Nonreactive); Syphilis Antibodies Non-reactive
[2023-07-31 22:06] LABS: Chlamydia By Nucleic Acid AMP Negative (Negative); Gonococcus By Nucleic Acid AMP Negative (Negative)
== END | disposition home or self-care (01) ==
PROVIDERS: PCP Family Medicine; Referring Provider Registered Nurse; Visit Provider Registered Nurse
DX: O09.90 Supervision of high risk pregnancy, unspecified, unspecified trimester (principal); Z3A.00 Weeks of gestation of pregnancy not specified
CPT/HCPCS: 36415; 84439; 84443; 84481; 85025; 86703; 86762; 86780; 86803; 86850; 86900; 86901; 87086; 87088; 87340; 87491; 87591

== ENCOUNTER → 2023-10-23 | Outpatient (CLI) | payer OTHER, SELFPAY ==
[2023-10-23 11:30] LABS: T4 Free Direct 0.86 ng/dL (0.76-1.46)
== END | disposition home or self-care (01) ==
LOC: LAB 10:12
PROVIDERS: PCP Family Medicine; Referring Provider Obstetrics & Gynecology; Visit Provider Obstetrics & Gynecology
DX: O99.820 Streptococcus B carrier state complicating pregnancy (principal); E03.9 Hypothyroidism, unspecified; Z3A.00 Weeks of gestation of pregnancy not specified
CPT/HCPCS: 36415; 84439; 84443

== ENCOUNTER → 2023-12-17 | Outpatient (CLI) | payer OTHER, SELFPAY ==
[2023-12-17 11:08] LABS: Absolute Lymphocyte Count 1.99 X10^3/uL (0.83-4.51); Absolute Neutrophil Count 7.3 X10^3/uL (2.0-7.7); Basophil# 0.02 X10^3/uL; Basophil% 0.2 % (0-1); Eosinophil# 0.05 X10^3/uL; Eosinophils% 0.5 % (0-5); Hematocrit 36.9 % (37-47); Hemoglobin 12.3 g/dL (12.0-15.0); Lymphocyte # 1.99 X10^3/ul (0.83-4.51); Lymphocyte % 20.3 % (19-41); Mean Corp Hgb Conc 33.3 g/dL (32-36); Mean Corpuscular Hgb 30.1 pg (27.0-32.0); Mean Corpuscular Volume 90.4 fL (81-99); Mean Platelet Vol. 10.9 fl (6.2-12.0); Monocyte# 0.42 X10^3/uL; Monocyte% 4.3 % (0-10); NRBC Flagged by Analyzer 0 % (0-5); Neutrophil # 7.25 X10^3/uL (2.7-7.7); Neutrophil % 74.1 % (47-70); Platelet Count 230 K/mm3 (150-450); RBC Distribution Width CV 13.6 % (11.6-14.6); RBC Distribution Width SD 44.8 fl (35.1-43.9); Red Blood Count 4.08 M/mm3 (4.2-5.4); White Blood Count 9.8 K/mm3 (4.4-11.0)
[2023-12-17 11:37] LABS: Glucose Challenge Gest 1H 50g 148 mg/dL (70-140); Thyroid Stim Hormone (TSH) 1.75 uIU/mL (0.358-3.74)
--- OUTSIDE RECORDS SUMMARY | 2023-12-17 12:53 | XMS RPT_ITS | CCD ---
Author Name Unknown Address [address] [place] [address] Organization [facility] Care Team Providers Care News Internship Name Role Phone ABHAY RACHAEL Unavailable Unavailable RACHAEL BLANK Unavailable Unavailable JORGE HERNANDEZ Referring Unavailab LANG Long Attending Unavailable CLAUDE GOLDEN Primary Care Unavailable Results Test Name Value Interpretation Reference Range Facil ity Encounters Encounter Date Encounter Type Care Provider Facility Start: 10-22-2023 End: 10-22-2023 ambulatory JORGE HERNANDEZ [facility] Start: 03-29-2018 End: 03-30-2018 Ambulatory RACHAEL BLANK Facility:[facility] Payers Date Payer Category Payer Unknown [id number] Summary Purpose Family History No Family History Records FoundNo Family History Records Found Advance Directives No Advanced Directives Records FoundNo Advanced Directives Records Found Additional Source Comments INFORMATION SOURCE (unrecogn ized section and content) DATE CREATED AUTHOR AUTHOR'S ORGANIZ ATION 10/25/2023 [facility] FOR RECORDS PERTAINING TO PATIENTS WHO ARE OR HAVE BEEN ENROLLED IN A CHEMICAL DEPENDENCY/SUBSTANCEABUSE PROGRAM, SOME INFORMATION MAY BE OMITTED. This clinical summary was aggregated from multiple sources. Caution should be exercised in using it in the provision of clinical care. This summary normalizes information from multiple sources, and as a consequence, information in this document may materially change the coding, format and clinical context of patient data. In addition, data may be omitted in some cases. CLINICAL DECISIONS SHOULD BE BASED ON THE PRIMARY CLINICAL RECORDS. [facility] [employer] [facility]. provides no warranty or guarantee of the accuracy or completeness of information in this document.
[2023-12-17 12:56] LABS: HIV - WCH Non-Reactive (Nonreactive); Syphilis Antibodies Non-reactive
== END | disposition home or self-care (01) ==
LOC: PAVLAB 10:30
PROVIDERS: PCP Family Medicine; Referring Provider Obstetrics & Gynecology; Visit Provider Obstetrics & Gynecology
DX: O99.280 Endocrine, nutritional and metabolic diseases complicating pregnancy, unspecified trimester (principal); E03.9 Hypothyroidism, unspecified; Z13.1 Encounter for screening for diabetes mellitus; Z3A.00 Weeks of gestation of pregnancy not specified
CPT/HCPCS: 36415; 82950; 84443; 85025; 86703; 86780

== ENCOUNTER → 2023-12-21 | Outpatient (CLI) | payer OTHER, SELFPAY ==
[2023-12-21 10:27] LABS: Glucose GTT-Gestation. Fasting 88 mg/dL (<105)
[2023-12-21 12:07] LABS: Glucose GTT-Gestational 1 Hr 133 mg/dL (<190)
[2023-12-21 13:10] LABS: Glucose GTT-Gestational 2 Hr 131 mg/dL (<165)
[2023-12-21 13:38] LABS: Glucose GTT-Gestational 3 Hr 103 L (<145)
== END | disposition home or self-care (01) ==
LOC: LAB 09:46
PROVIDERS: PCP Family Medicine; Referring Provider Obstetrics & Gynecology; Visit Provider Obstetrics & Gynecology
DX: O99.810 Abnormal glucose complicating pregnancy (principal); Z3A.00 Weeks of gestation of pregnancy not specified
CPT/HCPCS: 36415; 82951; 82952

== ENCOUNTER → 2024-02-19 | Outpatient (CLI) | payer OTHER, SELFPAY ==
[2024-02-19 16:25] LABS: Thyroid Stim Hormone (TSH) 1.42 uIU/mL (0.358-3.74)
== END | disposition home or self-care (01) ==
PROVIDERS: PCP Family Medicine; Referring Provider Obstetrics & Gynecology; Visit Provider Obstetrics & Gynecology
DX: O99.280 Endocrine, nutritional and metabolic diseases complicating pregnancy, unspecified trimester (principal); E03.9 Hypothyroidism, unspecified; Z3A.00 Weeks of gestation of pregnancy not specified
CPT/HCPCS: 36415; 84443; 87081

== ENCOUNTER 2024-03-14 07:11 | Inpatient (IN) | payer OTHER, SELFPAY ==
[2024-03-14] VITALS (42 sets, daily range): BP systolic 114–143; BP diastolic 58–91; PULSE 58–99; RESP 15–18; TEMP 36.5–37.1; O2SAT 98–100; BMI 37.0
[2024-03-14] MEDS: Lactated Ringers 1,000 ML 50 ML IV (08:10)
[2024-03-14] MEDS: Oxytocin 15 Units/NS 250ml 15 UNITS/250 ML IV.SOLN 2 UNITS IV (08:10)
[2024-03-14 08:30] LABS: Absolute Lymphocyte Count 2.19 X10^3/uL (0.83-4.51); Absolute Neutrophil Count 6.5 X10^3/uL (2.0-7.7); Basophil# 0.02 X10^3/uL; Basophil% 0.2 % (0-1); Eosinophil# 0.05 X10^3/uL; Eosinophils% 0.5 % (0-5); Hematocrit 37.5 % (37-47); Hemoglobin 12.2 g/dL (12.0-15.0); Lymphocyte # 2.19 X10^3/ul (0.83-4.51); Lymphocyte % 23.2 % (19-41); Mean Corp Hgb Conc 32.5 g/dL (32-36); Mean Corpuscular Hgb 29.5 pg (27.0-32.0); Mean Corpuscular Volume 90.6 fL (81-99); Monocyte# 0.66 X10^3/uL; NRBC Flagged by Analyzer 0 % (0-5); Neutrophil # 6.48 X10^3/uL (2.7-7.7); Neutrophil % 68.5 % (47-70); Platelet Count 169 K/mm3 (150-450); RBC Distribution Width CV 14.2 % (11.6-14.6); RBC Distribution Width SD 46.8 fl (35.1-43.9); Red Blood Count 4.14 M/mm3 (4.2-5.4); White Blood Count 9.5 K/mm3 (4.4-11.0)
--- NOTE | 2024-03-14 08:32 | HP.PCM.OB_ITS ---
HPI - General General Date of Admission: 03/14/24 Date of Service: 03/14/24 HPI Narrative REYNALDO MARINA, is a 28 F 40.3 weeks who presents to unit for elective induction of labor Maternal Data Information SHELLEY Calculator Estimated Delivery Date Method Current WG Current Estimate 03/11/24 LMP (Certain) 40w 3d Final SHELLEY: 03/11/24 Final SHELLEY Source: US >20 weeks Gestational age: 40.3 weeks PFSH PFSH Medical History Spontaneous vaginal delivery Thyroid disorder Home Medications ?Medication ?Instructions ?Recorded ?Last Taken ?Type prenat.vits,pierce,nfj-zknu-wmbur 1 tab PO DAILY 02/01/22 01/31/22 21:00 History ondansetron 4 mg disintegrating 4 mg PO Q6H PRN nausea and 08/25/23 Unknown Rx tablet vomiting #30 tabs levothyroxine 75 mcg tablet 75 mcg PO DAILY thyroid disorder 03/06/24 Unknown Rx (Synthroid) #90 tabs Allergy/AdvReac Type Severity Reaction Status Date / Time No Known Allergies Allergy Verified 03/10/24 10:36 Social History adopted: No household members: spouse and children housing: house number of children: 1 current occupational status: employed current occupation: banking officer - [employer] current occupational exposures/hazards: No pets and animals: No Smoking Status: Never smoker alcohol intake: current alcohol intake frequency: a few times a month substance use type: does not use well-balanced diet: daily or most days caffeine: Yes Type: coffee Number of servings: 1 eating out: 1-3 times/week seatbelt use: always do you feel safe at home: Yes additional social history: -Anibal self employed History 2 Elective abortions Hx Para 1 Spontaneous abortions 1 Hx # Term Pregnancies Ectopic pregnancies Hx # Pregnancies Multiple births # of living children 1 Past Pregnancies Del. Date Name GA/Weeks Outcome Route Bth Weight Gen Labor Lgth Anesthesia Del Locatn Provider FOB 02/01/22 Ted 40 live - full term 8lbs 7 oz Male ep idural [facility] Weeman 01/14/23 missed Visit Details Expected Delivery Route/Plan Labor Preferences- CB/BF classes: no labor support person: Anibal labor intervention preferences: [] pain management options preferred: epidural cut cord/dad catch: no : yes PP control planned: discussed discussed possible routes of delivery and associated risks: [] special requests: [] Plans Covid status: declined Flu vaccine: declined Tdap vaccine: given Rhogam: NA movement and labor precautions reviewed. LARC form signed: yes Problem list reviewed and updated with the most current plan of care details and appropriate orders placed. Relevant counseling for the gestational age provided. Continue routine care and follow up unless otherwise noted in visit notes/problem list details OB Flowsheet Initial Weight: 173 lb 6.4 oz Date -?-?-?-?-?-?-?-?-?-?-?-?- EGA Weight BP Urine Prot -?-?-?-?-?-?-?-?-?-?-?-?- Glucose FHR FuHt Pres Dilation -?-?-?-?-?-?-?-?-?-?-?-?- Effaced St Visit Note 07/29/23 -?-?-?-?-?-?-?-?-?-?-?-?- 7w 5d 173 lb 4 oz (-2.4 oz) 118/72 -?-?-?-?-?-?-?-?-?-?-?-?- 133 -?-?-?-?-?-?-?-?-?-?-?-?- LC- LMP con with CRL. declines nipt. add tsh/free t4/t3. 08/25/23 -?-?-?-?-?-?-?-?-?-?-?-?- 11w 4d 177 lb 2 oz (+3 lb 11.6 oz) 127/78 Negative -?-?-?-?-?-?-?-?-?-?-?-?- Negative 163 -?-?-?-?-?-?-?-?-?-?-?-?- JV- CRL still co nsistent with LMP. sending in zofran for persistent nausea and intermittent vomiting. hospital ultrasound for anatomy ordered. 09/25/23 -?-?-?-?-?-?-?-?-?-?-?-?- 16w 0d 180 lb 4 oz (+6 lb 13.6 oz) 129/73 Negative -?-?-?-?-?-?-?-?-?-?-?-?- Negative 155 -?-?-?-?-?-?-?-?-?-?-?-?- JV- nausea impro kevin with zofran. anatomy scan scheduled 10/1510/23/23 -?-?-?-?-?-?-?-?-?-?-?-?- 20w 0d 188 lb 2 oz (+14 lb 11.6 oz) 125/77 Negative -?-?-?-?-?-?-?-?-?-?-?-?- Negative 150 -?-?-?-?-?-?-?-?-?-?-?-?- SM- no vb crampi ng had anatomy scan yesterday nl per patient SM- no vb cramping had anato my scan yesterday nl per patient, ordered thryoid labs 11/20/23 -?-?-?-?-?-?-?-?-?-?-?-?- 24w 0d 194 lb (+20 lb 9.6 oz) 103/67 Negative -?-?-?-?-?-?-?-?-?-?-?-?- Negative 159 24 -?-?-?-?-?-?-?-?-?-?-?-?- JV- no lof, vagi nal bleeding, or dec fm. gct ordered. 12/17/23 -?-?-?-?-?-?-?-?-?-?-?-?- 27w 6d 201 lb 6 oz (+27 lb 15.6 oz) 105/75 Negative -?-?-?-?-?-?-?-?-?-?--?-?- Negative 140 28 -?-?-?-?-?-?-?-?-?-?-?-?- kw- no vb/lof/ct x. good fm. gct and LARC today. tdap next visit 12/31/23 -?-?-?-?-?-?-?-?-?-?-?-?- 29w 6d 203 lb (+29 lb 9.6 oz) 122/70 Negative -?-?-?-?-?-?-?-?-?-?-?-?- Negative 152 30 -?-?-?-?-?-?-?-?-?-?-?-?- MH-No VB, LOF. G ood FM. tdap. 01/15/24 -?-?-?-?-?-?-?-?-?-?-?-?- 32w 0d 209 lb (+35 lb 9.6 oz) 113/71 Negative -?-?-?-?-?-?-?-?-?-?-?-?- Negative 150 33 -?-?-?-?-?-?-?-?-?-?-?-?- SM- no vb lof go od fm n oregular ctx 01/28/24 -?-?-?-?-?-?-?-?-?-?-?-?- 33w 6d 215 lb (+41 lb 9.6 oz) 111/73 Negative -?-?-?-?-?-?-?-?-?-?-?-?- Negative 120 35 -?-?-?-?-?-?-?-?-?-?-?-?- KW- no vb/lof/ct x. good fm. 02/11/24 -?-?-?-?-?-?-?-?-?-?-?-?- 35w 6d 220 lb 4 oz (+46 lb 13.6 oz) 111/72 Negative -?-?-?-?-?-?-?-?-?-?-?-?- Negative 156 36 -?-?-?-?-?-?-?-?-?-?-?-?- JV- no lof, vagi nal bleeding, or dec fm. no complaints. plan to check tsh next visit and collect GBS next visit. 02/19/24 -?-?-?-?--?-?-?-?-?-?-?-?- 37w 0d 227 lb 2 oz (+53 lb 11.6 oz) 120/82 Negative -?-?-?-?-?-?-?-?-?-?-?-?- Negative 145 38 Cephalic 1 .5 -?-?-?-?-?-?-?-?-?-?-?-?- 40 -3 KW- no vb/ lof/ctx. good fm. GBS today. TSH today 02/25/24 -?-?-?-?-?-?-?-?-?-?-?-?- 37w 6d 226 lb (+52 lb 9.6 oz) 123/78 Negative -?-?-?-?-?-?-?-?-?-?-?-?- Negative 140 39 Cephalic 1 .5 -?-?-?-?-?-?-?-?-?-?-?-?- 40 -3 KW-no vb/l of/reg ctx. good fm. labor precautions 03/03/24 -?-?-?-?-?-?-?-?-?-?-?-?- 38w 6d 230 lb (+56 lb 9.6 oz) 115/77 Negative -?-?-?-?-?-?-?-?-?-?-?-?- Negative 140 39 Cephalic 1 .5 -?-?-?-?-?-?-?-?-?-?-?-?- SM- no vb lof go od fm n oregular ctx 03/10/24 -?-?-?-?-?-?-?-?-?-?-?-?- 39w 6d 236 lb (+62 lb 9.6 oz) 134/77 Negative -?-?-?-?-?-?-?-?-?-?-?-?- Negative 125 40 Cephalic 3 -?-?-?-?-?-?-?-?-?-?-?-?- 60 -3 kw- no vb/ lof/ctx. good fm. IOL for next week NST FHR Rate Baby A Baseline: 135 Variability:: Moderate Accelerations:: 15 x 15 Decelerations:: None NST Reactive:: Yes FHR Category:: Category I Uterine Activity:: irregular ROS Constitutional Constitutional: Denies change in weight, fatigue, fever(s), headache(s), poor appetite or weakness Eyes Eyes: Denies blurry vision, change in vision, floaters, seeing flashes or spots in vision ENT HEENT: Denies dizziness, headache(s), loss taste/smell or sore throat Cardiovascular Cardiovascular: Denies chest pain, dizziness, dyspnea, irregular heart rhythm, lightheadedness, palpitations or rapid heart rate Respiratory/Chest Respiratory/Chest: Denies change in mental status, chest tightness, cough, dyspnea or breast pain Gastrointestinal Gastrointestinal: Denies anorexia, chewing difficulty, constipation, diarrhea or weight changes Genitourinary Genitourinary: Denies difficulty urinating, dysuria, flank pain, genital pain, urinary frequency or urinary urgency Musculoskeletal Musculoskeletal: Denies back pain, difficulty walking, extremity pain, joint pain, muscle cramps or muscle weakness Integumentary Integumentary: Denies lesions or unusual bruising Neurologic Neurologic: Denies abnormal movements, abnormal speech, dizziness, numbness, seizure-like activity, syncope or weakness Psychiatric Psychiatric: Denies behavioral changes, change in appetite, confusion, depr ession, homicidal ideation, suicidal ideation or suicidal thoughts Endocrine Endocrinology: Denies excessive sweating, polydipsia or polyuria Hematologic/Lymphatic Hematologic/Lymphatic: Denies anemia Allergic/Immunologic Allergic/Immunologic: Denies itchy eyes, lip swelling, throat swelling, tongue swelling or wheezing Vital Signs Vital Signs Vital Signs: 03/14/24 07:24 03/14/24 07:24 03/14/24 07:48 Temperature Temperature Source Pulse Rate 95 89 Respiratory Rate Blood Pressure 129/68 H BP Systolic 129 BP Diastolic 68 Pulse Ox 03/14/24 07:48 03/14/24 07:48 03/14/24 07:48 Temperature Temperature Source Temporal Pulse Rate Respiratory Rate 18 Blood Pressure BP Systolic BP Diastolic Pulse Ox 98 03/14/24 07:48 03/14/24 07:48 Temperature 98.4 F Temperature Source Pulse Rate Respiratory Rate Blood Pressure BP Systolic BP Diastolic Pulse Ox 98 Weight Weight: 237 lb Body Mass Index (BMI) 37.0 Physical Exam Const alert, oriented x3 and no apparent distress General Appearance: cooperative Orientation / Consciousness: awake HEENT normocephalic Neck full ROM Lymph Lymphatic: no lymphadenopathy noted Chest inspection of chest normal Resp normal respiratory effort and normal air movement Effort and Inspection: able to speak in complete sentences and symmetric chest movement GI soft to palpation and non-tender Inspection: gravid Palpation: soft; Negative for tender external exam normal Back/Spine normal to inspection Extremity normal to inspection and full ROM Skin no rashes or lesions noted Psych mental status grossly normal Appearance: grossly normal Speech: normal speech Labs Labs Labs: Blood Type A POSITIVE Antibody Screen NEGATIVE Hct 37.5 % (37-47) Hgb 12.2 g/dL (12.0-15.0) Syphilis Total Ab Non-reactive Rubella IgG Antibody Reactive (Nonreactive) Hep Bs Antigen Non-Reactive (Nonreactive) Hepatitis C Antibody Non-Reactive (Nonreactive) Chlamydia DNA (COURT) Negative (Negative) N.gonorrhoeae DNA (COURT) Negative (Negative) HIV 1&2 Antibody Non-Reactive (Nonreactive) Glucose 1 Hr 50 gm 148 mg/dL (70-140) H Gest Glucose Tolerance MG/DL Rhogam given: No Assessment & Plan (1) Encounter for induction of labor: PLAN: Patient presents IOL, plan management for with pitocin/AROM. Pain management: plans epidural. GBS negative. Management of any complications: none I have reviewed the [facility] and made any clinically relevant updates. (2) Abnormal glucose affecting : COMMENT: Normal 3 hour GTT (3) Hypothyroid in , antepartum: COMMENT: labs q trimester (4) Supervision of high risk , antepartum: COMMENT: PRR , EDD/ boy PC: Ted, Spouse Anibal (5) : QUALIFIERS: Weeks of gestation: 38 weeks Qualified Code(s): Z3A.38 - 38 weeks gestation of COMMENT: GBS neg, Discussed ntd genetics and carrier screening - declined. nl anatomy per patient- obtain mfm report. Charges/Coding Multi Select Codes Urinary/Genital Urinary/Genital CPT Codes: No Charge
[2024-03-14] MEDS: LACTATED RINGERS 500 ML 999 ML IV ×2 (10:57→16:13)
[2024-03-14] MEDS: fentaNYL-bupivacaine (epidural) 100 ML BAG EPIDURAL (12:09)
--- NOTE | 2024-03-14 12:52 | PN_ITS ---
Progress Note comfortable with epidural current tracing: FHT: 115 Moderate variability reactive no decelerations category I tracing [place]: 3-5 minute Contractions Membranes:AROM 1245 clear SVE:4/70/-2 IUPC placed A/P: Continue with position changes Titrate pitocin per protocol Epidural per anesthesia no GBS prophylaxis needed Anticipate Dr Baxter aware of above assessment and agrees with plan of care Assessment & Plan Assessment/Plan (1) Encounter for induction of labor: (2) Abnormal glucose affecting : (3) Hypothyroid in , antepartum: (4) Supervision of high risk , antepartum: (5) : Multi Select Codes Urinary/Genital Urinary/Genital CPT Codes: No Charge
[2024-03-14] MEDS: Amnioinfusion- 0.9% NS 1,000 ML IV.SOLN. 1000 ML INTRA-UTER (14:40)
[2024-03-14] MEDS: Lactated Ringers 1,000 ML 200 ML IV (15:31)
--- NOTE | 2024-03-14 15:39 | PCM.PN.BLA ---
Progress Note comfortable with epidural current tracing: FHT: 120 Moderate variability reactive prolonged decelerations and variables category II tracing [place]: 3-4 Contractions Membranes:remains clear SVE:/ reviewed tracing abnormalities since last note: collaboration with Dr Latham at this time for Cat II FHT tracing. A/P: Continue with position changes Titrate pitocin per protocol Epidural per anesthesia Anticipate Dr Baxter aware of above assessment and agrees with plan of care Assessment & Plan Assessment/Plan (1) Encounter for induction of labor: (2) Abnormal glucose affecting : (3) Hypothyroid in , antepartum: (4) Supervision of high risk , antepartum: (5) : Multi Select Codes Urinary/Genital Urinary/Genital CPT Codes: No Charge
--- NOTE | 2024-03-14 16:48 | EX.PCM.OBRPT ---
Assessment & Plan (1) Encounter for induction of labor: (2) Abnormal glucose affecting : COMMENT: Normal 3 hour GTT (3) Hypothyroid in , antepartum: COMMENT: labs q trimester (4) Supervision of high risk , antepartum: COMMENT: PRR , EDD03/11/2024 boy PC: Ted, Spouse Anibal (5) : COMMENT: GBS neg, Discussed ntd genetics and carrier screening - declined. nl anatomy per patient- obtain mfm report. Maternal Data Information SHELLEY Calculator Estimated Delivery Date Method Current WG Current Estimate 03/11/24 LMP (Certain) 40w 3d Final SHELLEY: 03/11/24 Gestational age: 40 weeks 3 days Doctor Who Attended Delivery: Noah Lowe Vaginal Delivery Maternal Presentation Maternal Presentation: Elective Induction Type of Induction: Pitocin and Amniotomy Operative Information Date of Procedure: 03/14/24 Pre-Operative Diagnosis: @ 40 weeks 3 days, LGA, intolerance to labor Post-Operative Diagnosis: @ 40 weeks 3 days, LGI intolerance to labor Surgery / Procedure Performed: Vacuum Assisted Vaginal Delivery Type of Anesthesia: Epidural Drain: Sosa to straight drain Estimated Blood Loss: 300cc Findings Description of Procedure: Details of delivery: This is a 28 year old @ 40 weeks 3 days who was admitted to labor and delivery for elective induction and for LGA. The decision was made to perform a vacuum extraction due to persistent deep variable decels followed by terminal bradycarida. The risk benefits and alternatives of the procedure were discussed with the patient and verbal consent was obtained. The was noted to be at a +2 station, the cervix was completely dilated. The infant's head was noted to be in the right occiput anterior presentation. The vacuum was placed in the correct placement in front of the posterior fontanelle. This was confirmed digitally. With the patient's next contraction, the vacuum was inflated and a gentle downward pressure was used to assist with bringing the baby's head to a +3 station. With 1 pull and 0pop offs. The head was delivered atraumatically. No nuchal cord was noted. The anterior shoulder followed by the posterior shoulder were delivered without difficulty. The was handed off to the patient's chest. The infant was found to be vigorous and crying and moving of all 4 extremities. The mouth and nares were bulb suctioned. After 60 second delay the cord was clamped and cut and the infant was handed off to the awaiting nurses for routine assessment. The placenta was delivered with gentle traction and uterine massage. Inspection of the vagina cervix and perineum was performed. There were no lacerations to the vagina or to the cervix. The peritoneum was found to have a 1st degree perineal laceration. The perineal laceration was closed using a 2-0 Vicryl in the usual sterile fashion. The patient tolerated the procedure well sponge lap and needle counts were correct x2 and she is now recovering in stable condition. Presentation: Vertex Amniotic Membrane Rupture Type: Artificial Amniotic Fluid Description: Moderate meconium Placental Delivery Description: Spontaneous Placenta Disposition: [facility] Cord Vessel Description: 3 Vessels Cord Entanglement: None Delayed Cord Clamping: Yes Post Vaginal Delivery Medications Given After Delivery: IV Pitocin Episiotomy Description: None Complication Complications: None Multi Select Codes Urinary/Genital Urinary/Genital CPT Codes: 68070 Vaginal Delivery global pkg and Other Procedure See Report
[2024-03-14] MEDS: Oxytocin 15 Units/NS 250ml 15 UNITS/250 ML IV.SOLN 83 UNITS IV (17:05)
[2024-03-15] VITALS (10 sets, daily range): BP systolic 108–132; BP diastolic 66–90; PULSE 77–91; RESP 16; TEMP 36.6–37.1
[2024-03-15] MEDS: Acetaminophen 500 MG Tablet 1000 MG PO (00:41)
[2024-03-15] MEDS: Ibuprofen 600 MG Tablet PO ×2 (05:10→12:13)
--- NOTE | 2024-03-15 07:52 | PCM.PN.OB ---
Subjective Subjective Patient doing well without complaints. Tolerating PO. Ambulating and voiding without difficulty. Feeding well. Denies chest pain, shortness of breath, calf pain/swelling, fevers, chills, lightheadedness. Objective Data Objective Data Vital Signs: Vital Signs Temp Pulse Resp BP Pulse Ox O2 Del Method 97.8 F 83 16 122/67 H 98 Room Air 03/15/24 05:09 03/15/24 05:09 03/15/24 05:09 03/15/24 05:09 03/14/24 16:06 03/15/24 05:09 Oxygen Delivery Method Room Air Weight: 237 lb Body Mass Index (BMI) 37.0 Intake & Output: Intake and Output for Last 24 Hours 03/13/24 03/14/24 03/15/24 23:59 23:59 23:59 Intake Total 3332.18 / 3332.18 Output Total 3550 / 3550 Balance -217.82 / -217.82 Lab / Micro Data 03/14/24 08:10 Labs: Laboratory Results - last 24 hr 03/14/24 08:10: WBC 9.5, RBC 4.14 L, Hgb 12.2, Hct 37.5, MCV 90.6, MCH 29.5, MCHC 32.5, RDW Std Deviation 46.8 H, RDW Coeff of Naya 14.2, Plt Count 169, MPV 12.0, Immature Gran % (Auto) 0.600, Neut % (Auto) 68.5, Lymph % (Auto) 23.2, Meagher % (Auto) 7.0, Eos % (Auto) 0.5, Baso % (Auto) 0.2, Absolute Neuts (auto) 6.5, Absolute Lymphs (auto) 2.19, Nucleated RBC % 0, Blood Type A POSITIVE, Antibody Screen NEGATIVE Physical Exam Const alert and oriented x3 HEENT normocephalic Eyes PERRL Neck full ROM Resp normal respiratory effort GI soft to palpation GI Narrative: FF below U. Palpation: tender other (appropriately) Assessment & Plan (1) Vacuum-assisted vaginal delivery: COMMENT: DEEP Boy 03/15/24 JV PLAN: Plan s/p PPD # 1 1. routine post delivery care 2. breast feeding- support given 3. rh positive 4. rubella immune 5. home today
[2024-03-15 12:37] LABS: Syphilis Antibodies Non-reactive
== END 2024-03-15 17:50 | disposition home or self-care (01) | DRG 807 ==
PROVIDERS: Admitting Provider Advanced Practice Midwife; PCP Family Medicine; Visit Provider Advanced Practice Midwife
DX: O36.63X0 Maternal care for excessive fetal growth, third trimester, not applicable or unspecified (principal); Z37.0 Single live birth; E03.9 Hypothyroidism, unspecified; O99.284 Endocrine, nutritional and metabolic diseases complicating childbirth; O70.0 First degree perineal laceration during delivery; O77.0 Labor and delivery complicated by meconium in amniotic fluid; O76 Abnormality in fetal heart rate and rhythm complicating labor and delivery; O48.0 Post-term pregnancy; Z3A.40 40 weeks gestation of pregnancy; Z79.890 Hormone replacement therapy
CPT/HCPCS: 59025; 59050; 85025; 86780; 86850; 86900; 86901; 99221; G0378

== ENCOUNTER → 2024-04-28 | Outpatient (CLI) | payer OTHER, SELFPAY ==
[2024-05-02 18:48] LABS: HPV Reflexed? NOT INDICATED
== END | disposition home or self-care (01) ==
LOC: LABSPEC 12:02
PROVIDERS: PCP Family Medicine; Referring Provider Advanced Practice Midwife; Visit Provider Advanced Practice Midwife
DX: Z12.4 Encounter for screening for malignant neoplasm of cervix (principal)
CPT/HCPCS: 88175; G0145

== ENCOUNTER → 2025-05-29 | Outpatient (CLI) | payer OTHER, SELFPAY | END | disposition home or self-care (01) | LOC: PAVLAB 14:25 | PROVIDERS: PCP Family Medicine; Referring Provider Nurse Practitioner Women's Health; Visit Provider Nurse Practitioner Women's Health | DX: E07.9 Disorder of thyroid, unspecified (principal); Z13.29 Encounter for screening for other suspected endocrine disorder | CPT/HCPCS: 36415; 84439; 84443; 86376 ==

== ENCOUNTER → 2025-08-10 | Outpatient (CLI) | payer OTHER, SELFPAY ==
[2025-08-10 16:39] LABS: Hematocrit 39.9 % (37-47); Hemoglobin 13.4 g/dL (12.0-15.0); Immature Granulocytes Count 0.040 X10^3/uL (0.0-0.0); Mean Corp Hgb Conc 33.6 g/dL (32-36); Mean Corpuscular Volume 86.0 fL (81-99); Mean Platelet Vol. 10.6 fl (6.2-12.0); NRBC Flagged by Analyzer 0 % (0-5); Platelet Count 291 K/mm3 (150-450); RBC Distribution Width CV 13.0 % (11.6-14.6); RBC Distribution Width SD 40.3 fl (35.1-43.9); Red Blood Count 4.64 M/mm3 (4.2-5.4); White Blood Count 11.7 K/mm3 (4.4-11.0)
[2025-08-10 17:34] LABS: HIV Nonreactive (Nonreactive); Hepatitis B Surface Antigen Nonreactive (Nonreactive); Hepatitis C Antibody Nonreactive (Nonreactive); Syphilis Antibodies Nonreactive (Nonreactive)
[2025-08-14 20:08] LABS: Chlamydia By Nucleic Acid AMP Negative (Negative); Gonococcus By Nucleic Acid AMP Negative (Negative)
== END | disposition home or self-care (01) ==
PROVIDERS: PCP Family Medicine; Visit Provider Advanced Practice Midwife
DX: O09.90 Supervision of high risk pregnancy, unspecified, unspecified trimester (principal); O99.280 Endocrine, nutritional and metabolic diseases complicating pregnancy, unspecified trimester; E03.9 Hypothyroidism, unspecified; Z3A.00 Weeks of gestation of pregnancy not specified
CPT/HCPCS: 36415; 84439; 84443; 85025; 86703; 86762; 86780; 86803; 86850; 86900; 86901; 87086; 87088; 87340; 87491; 87591